=== PATIENT | female | born 1965 | race Two or more races ===

== ENCOUNTER 2017-08-05 08:18 | Emergency (ER) | payer OTHER ==
[~2017-08-05] VITALS: Ht 165.1 cm; Wt 86.2 kg
[2017-08-05 08:24] VITALS: BP 144/61
--- NOTE | 2017-08-05 09:23 | NUR ---
URINE SAMPLE COLLECTED SENT TO LAB
[2017-08-05 09:31] LABS: BILIRUBIN,URINE NEGATIVE (NEGATIVE); BLOOD, URINE 1+ Ery/uL (NEGATIVE); COLOR,URINE YELLOW (YELLOW); KETONES,URINE NEGATIVE (NEGATIVE); LEUKOCYTE ESTERASE ,URINE 1+ (NEGATIVE); NITRITE, URINE NEGATIVE (NEGATIVE); PH,URINE 5.5 (5.0-8.0); PROTEIN,URINE NEGATIVE (NEGATIVE); UGLUCOSE NEGATIVE (NEGATIVE); UROBILINOGEN,URINE 0.2 EU/dL (0.2)
[2017-08-05 09:33] LABS: APPEARANCE,URINE SLIGHTLY HAZY (CLEAR)
[2017-08-05 09:54] LABS: BACTERIA,URINE Rare /HPF (None Seen); RBC,URINE 0-2 /HPF (0-2); SQUAMOUS EPITHELIAL CELL,UR Few /HPF (None Seen)
== END 2017-08-05 09:59 | disposition home or self-care (01) ==
LOC: ER 08:20
DX: R10.9 Unspecified abdominal pain (principal); M54.5 Low back pain; J45.909 Unspecified asthma, uncomplicated
CPT/HCPCS: 81000-TC; 87086-TC; A4606; Z7610